=== PATIENT | female | born 1960 | race Caucasian/White ===

== ENCOUNTER 2021-05-27 15:22 | Outpatient (CLI) | payer OTHER, SELFPAY ==
--- NOTE | ~2021-05-27 | MM_ITS ---
EXAMINATION: MM screening [facility] BI w [facility]lan HISTORY: Screening mammogram TECHNIQUE: Craniocaudal and mediolateral oblique 3-D tomosynthesis images were obtained and synthetic 2-D images were generated. CAD analysis was submitted and interpreted. COMPARISON: 07/12/2018, 06/30/2017, 06/26/2016 BREAST PARENCHYMAL COMPOSITION: There are scattered areas of fibroglandular density. FINDINGS: There is no suspicious mass, calcification, or architectural distortion to suggest malignan cy in either breast. There has been no suspicious interval change. IMPRESSION: 1. No mammographic evidence of malignancy. 2. Recommend routine screening mammography in one year. BI-RADS Category 1: Negative Reviewed, dictated and finalized at location A.
== END 2021-05-27 15:23 | disposition home or self-care (01) ==
LOC: ANHIMG 15:23
PROVIDERS: PCP Family Medicine; Visit Provider Family Medicine
DX: Z12.31 Encounter for screening mammogram for malignant neoplasm of breast (principal)
CPT/HCPCS: 77063; 77067

== ENCOUNTER 2021-12-30 14:15 | Outpatient (CLI) | payer OTHER, SELFPAY ==
--- NOTE | ~2021-12-30 | DEXA_ITS ---
Bone Density Report Name: DANYA PEARSON Age: 61 Sex: Female Ethnicity: White Date of : 1960 Indication: postmenopausal; screening for osteoporosis; hysterectomy; rheumatoid arthritis; Referring Provider: ERYN, FIDELINA Study: Bone densitometry was performed. Exam Date: December 30, 2021 Accession number: [id number] Bone Density: Region BMD T-score Z-score Classification AP Spine(L1-L4) 0.936 -1.0 0.4 Normal Femoral Neck (Left) 0.725 -1.1 0.2 Osteopenia Total Hip (Left) 0.968 0.2 1.2 Normal Femoral Neck (Right) 0.800 -0.4 0.8 Normal Total Hip (Right) 0.995 0.4 1.4 Normal Total Hip Mean 0.981 0.3 1.3 Normal World Health Organization criteria for BMD impression classify patients as: Normal (T-score at or above -1.0), Osteopenia (T-score between -1.0 and -2.5), or Osteoporosis (T-score at or below -2.5). 10-year Fracture Risk(1): Major Osteoporotic Fracture 8.7% Hip Fracture 0.6% Reported Risk Factors: [place] (), Neck BMD=0.725, BMI=35.0, rheumatoid arthritis (1) FRAX(R) Version 3.08. Fracture probability calculated for an untreated patient. Fracture probability may be lower if the patient has received treatment. Clinical Information Provided by Patient: Has rheumatoid arthritis Has used the following medications: Vitamin D, Calcium Has the following medical conditions: Hysterectomy Patient maximum height was 64 Menopause Age: 51 No regular weight bearing exercise Drinks caffeinated beverages Onset of menses at age 13 Number of children 3 Impression: The patient has low bone mass, based on the Left Femoral Neck T-score. The patient has an estimated ten-year risk of hip fracture of 0.6% and an estimated ten-year risk of major fracture of 8.7%, based on the WHO FRAX algorithm. Discussion: BONE DENSITY IS LOW AT ONE OR MORE SKELETAL SITES. This patient's lowest T-score is low at one or more skeletal sites. It meets the World Health Organization's (WHO) criteria for ?low bone mass? (T-score between -1.0 and -2.5). The patient's 10-year risk of fracture as calculated by FRAX is less than the threshold where pharmacological therapy is recommended by the National Osteoporosis Foundation (NOF). However, all treatment decisions require clinical judgment and consideration of individual patient factors, including patient preferences, comorbidities, previous drug use, risk factors not captured in the FRAX model (e.g., frailty, falls, vitamin D deficiency, increased bone turnover, interval significant decline in bone density) and possible under or overestimation of fracture risk by FRAX. The patient should follow a healthful lifestyle (good nutrition with adequate calcium and vitamin D, and appropriate weight-bearing exercise). Follow-Up: Consider repeating this stud
== END 2021-12-30 14:16 | disposition home or self-care (01) ==
PROVIDERS: PCP Family Medicine; Visit Provider Registered Nurse
DX: Z78.0 Asymptomatic menopausal state (principal); M85.852 Other specified disorders of bone density and structure, left thigh
CPT/HCPCS: 77080

== ENCOUNTER 2022-01-27 08:11 | Emergency (ER) | payer OTHER, SELFPAY ==
[2022-01-27 08:20] VITALS: BP 135/96; PULSE 97; RESP 16; TEMP 36.8; O2SAT 99
--- NOTE | 2022-01-27 08:32 | ED.URI ---
HPI - URI/Sore Throat General Chief Complaint: Upper Respiratory Infection Stated Complaint: r lymh node swollen/Flu like sx Time Seen by Provider: 01/27/22 08:33 Source: patient and RN notes reviewed Mode of arrival: ambulatory Limitations: no limitations History of Present Illness HPI Narrative: 61-year-old female presented for complaints of right neck pain and swelling to the lymph node, onset this morning. States the swelling is going down. She endorses she has had ?a cold? over the last week with sinus congestion, sore throat and cough. 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 She denies shortness of breath, wheezing, vomiting, diarrhea, fevers or chills. She is taking cccy-cqe-auzwqqu Mucinex for symptoms. MD elicited complaint: cough Related Data Allergies Allergy/AdvReac Type Severity Reaction Status Date / Time pollen extracts Allergy Unknown Unknown Verified 01/27/22 08:32 No Known Allergies Allergy Unverified 01/27/22 08:32 Review of Systems Review of Systems: ROS per HPI PMF Family History Family History Father Carcinoma of colon Colon polyp Family history of malignant neoplasm of urinary bladder Mother Carcinoma of colon Colon polyp Other Family history of malignant neoplasm of breast No family history of cardiovascular disease Social History Social History Alcohol intake: current Exam Narrative: GENERAL: Ill-appearing, nontoxic EYES: PERRLA, conjunctivae clear ENT: Mucous membranes moist. Nasal congestion. TMs pearly st with dull light reflex bilaterally; no tragal tenderness. Oropharynx normal without lesions or exudate, no drooling, no hoarseness, no trismus, uvula midline. NECK: Supple. Right anterior cervical lymphadenopathy CHEST: Clear to auscultation, breath sounds equal. HEART: Regular rate and rhythm. No murmur heard. SKIN: Warm, dry, no rash. NEURO: Alert and oriented x3. PSYCH: Normal mood and affect Course Course Emergency Course: Patient is aware of diagnosis, understands and agrees to treatment plan. Anticipatory guidance given. Patient agrees to follow-up as directed and is aware of reasons to seek care at the emergency department. Portions of this record may have been created with voice recognition software Level of Care: Express Care Visit Vital Signs Vital signs: Vital Signs Temperature 98.2 F 01/27/22 08:20 Pulse Rate 97 01/27/22 08:20 Respiratory Rate 16 01/27/22 08:20 Blood Pressure 135/96 H 01/27/22 08:20 Pulse Oximetry 99 01/27/22 08:20 Oxygen Delivery Room Air 01/27/22 08:20 Temperature 98.2 F 01/27/22 08:20 Pulse Rate 97 01/27/22 08:20 Respiratory Rate 16 01/27/22 08:20 Blood Pressure 135/96 H 01/27/22 08:20 Pulse Oximetry 99 01/27/22 08:20 Oxygen Delivery Room Air 01/27/22 08:20 reviewed MDM - URI/Sore Throat MDM Narrative Medical decision making narrative: Advised supportive measures and signs/symptoms to go to the ER. Pt is appropriate for outpt treatment and f/u. Differential Diagnosis Differential diagnosis: Likely upper respiratory infection, sinusitis and viral infection Discharge Plan Discharge Clinical Impression: Lymphadenopathy of right cervical region Upper respiratory infection Qualifiers: URI type: unspecified URI Qualified Code(s): J06.9 - Acute upper respiratory infection, unspecified Patient Disposition: Home, Self-Care Condition: Stable Instructions: Lymphadenopathy (ED), Upper Respiratory Infection (ED) Additional Instructions: Recommend Flonase spray and Zyrtec (or Claritin/Bina) over the counter Cough syrup may cause drowsiness; avoid driving or take it at night time. Tylenol 1000mg every 8 hours as needed for pain Heating pad on low setting to right neck as needed Symptomatic treatment includes: rest, fluids, and increase
== END 2022-01-27 08:46 | disposition home or self-care (01) ==
PROVIDERS: Emergency Provider Nurse Practitioner Family; PCP Registered Nurse
DX: J06.9 Acute upper respiratory infection, unspecified (principal); R59.0 Localized enlarged lymph nodes
CPT/HCPCS: 99213; G0463

== ENCOUNTER 2023-09-03 07:41 | Outpatient (CLI) | payer OTHER, SELFPAY | END 2023-09-03 07:42 | disposition home or self-care (01) | LOC: ANHAUDASC 07:55 | PROVIDERS: PCP Registered Nurse; Visit Provider Registered Nurse | DX: H90.3 Sensorineural hearing loss, bilateral (principal) | CPT/HCPCS: 92557; 92567 ==

== ENCOUNTER 2023-10-14 13:30 | Outpatient (RCR) | payer OTHER, SELFPAY | END 2023-12-08 23:59 | disposition home or self-care (01) | LOC: ANHAUDASC 13:30 | PROVIDERS: PCP Registered Nurse; Visit Provider Registered Nurse | DX: Z46.1 Encounter for fitting and adjustment of hearing aid (principal) | CPT/HCPCS: 99199; V5261 ==

== ENCOUNTER 2024-04-05 15:29 | Outpatient (CLI) | payer OTHER, SELFPAY ==
--- NOTE | ~2024-04-05 | MM_ITS ---
EXAMINATION: MM screening dru BI w rolan HISTORY: Screening TECHNIQUE: Craniocaudal and mediolateral oblique 3-D tomosynthesis images were obtained and synthetic 2-D images were generated. CAD analysis was submitted and interpreted. COMPARISON: Comparison to multiple prior studies sequentially, with oldest reviewed study dated 08/17. BREAST PARENCHYMAL COMPOSITION: Not dense: There are scattered areas of fibroglandular density. FINDINGS: There is no evidence of suspicious mass, calcification, or architectural distortion to sugg est malignancy in either breast. There has been no suspicious interval change. IMPRESSION: 1. No mammographic evidence of malignancy. 2. Recommend routine screening mammography in one year. BI-RADS Category 1: Negative Reviewed, dictated and finalized at location B. GLE CARRIER
--- OUTSIDE RECORDS SUMMARY | 2024-04-05 16:00 | XMS_ITS | Encounter Summary ---
Author Organization [facility] Address [address] [place] [address] Care Team Providers Care Guest Services Director Name Role Phone Regi Rocha Primary Care Provider [phone] Encounter Details Date Type Department Care Team (Late Contact Info) Description 04/23/2022 [place] Message Enc [facility] Family & Internal Medicine [facility] [address] [place] [address] Regi Rocha APNP [facility] [place] [address] prescription ok? Social History Tobacco Use Types Packs/Day Years Used Date Smoking Tobacco: Never Smokeless Tobacco: Never Alcohol Use Standard Drinks/Week Comments Yes 0 (1 standard drink = 0.6 oz pure alcohol) nightly, 2 glass of wine at night PHQ-2 Answer Date Recorded Patient Health Questionnaire-2 Score 1 03/12/2022 Comments Unknown Sex and Gender Information Value Date Recorded Sex Assigned at Not on file Legal Sex Female 7:29 AM CDT Gender Identity Not on file Sexual Orientation Not on file COVID-19 Exposure Response Date Recorded In the last 10 days, have yo u been in contact with someone who was confirmed or suspected to have Coronavirus/COVID-19? Unable to assess 04/22/2022 8:24 AM BIOMETRICS ANALYST documented as of this encounter Plan of Treatment Upcoming Encounters Date Type Department Care Team (Late Contact Info) Description 01/15/2025 11:20 AM BIOMETRICS ANALYST Office Visit [facility] Multispecialty Care - [address], [address] [place] [address] Nancy Ramirez MD [address] [place] [address] documented as of this encounter Visit Diagnoses Not on filedocumented in this encounter Additional Health Concerns Assessment Noted Time PHQ-9 Depression Total Score: 3 03/12/19 23 10:40 AM BIOMETRICS ANALYST documented as of this encounter Care Teams Guest Services Director Relationship Specialty Start Date End Date Regi Rocha APNP [address] [place] [address] PCP - General NURSE PRACTITIONER 08/07/21 documented as of this encounter
--- OUTSIDE RECORDS SUMMARY | 2024-04-05 16:00 | XMS_ITS | Encounter Summary ---
Author Organization [facility] Address [address] [place] [address] Care Team Providers Care Buffing Wheel Inspector Name Role Phone JosefinaRegi Jyoti HERNANDEZ Primary Care Provider [phone] Encounter Details Date Type Department Care Team (Late st Contact Info) Description 11/19/2023 [employer] Message Enc [facility] - [address], [address] [place] [phone] [facility] Provider MRI Social History Tobacco Use Types Packs/Day Years Used Date Smoking Tobacco: Never Smokeless Tobacco: Never Alcohol Use Standard Drinks/Week Comments Yes 23.3 (1 standard dri nk = 0.6 oz pure alcohol) nightly, 2 glass of wine at night PHQ-2 Answer Date Recorded Patient Health Questionnaire-2 Score 0 08/25/2023 Comments No Sex and Gender Information Value Date Recorded Sex Assigned at Not on file Legal Sex Female 7:29 AM CDT Gender Identity Not on file Sexual Orientation Not on file documented as of this encounter Plan of Treatment Upcoming Encounters Date Type Department Care Team (Late st Contact Info) Description 01/15/2025 11:20 AM GOVERNMENT OPERATIONS CONSULTANT Office Visit [facility] - [address], [address] [place] [phone] Nancy Ramirez MD [address] [place] [phone] documented as of this encounter Visit Diagnoses Not on filedocumented in this encounter Additional Health Concerns Assessment Noted Time PHQ-9 Depression Total Score: 3 03/12/19 23 10:40 AM GOVERNMENT OPERATIONS CONSULTANT documented as of this encounter Care Teams Buffing Wheel Inspector Relationship Specialty Start Date End Date Regi Rocha APNP [address] [place] [address] PCP - General NURSE PRACTITIONER 08/07/21 documented as of this encounter
--- OUTSIDE RECORDS SUMMARY | 2024-04-05 16:00 | XMS_ITS | Encounter Summary ---
Author Organization [facility] Address [address] [place] [address] Care Team Providers Care Orthotic Fitter Name Role Phone Regi Rocha Primary Care Provider [phone] Encounter Details Date Type Department Care Team (Late st Contact Info) Description 01/27/2022 MyChart Message Enc [facility] Family & Internal [facility] [address] [place] [address] Regi Rocha APNP [address] [place], [place] [phone] Swollen gland Social History Tobacco Use Types Packs/Day Years Used Date Smoking Tobacco: Never Smokeless Tobacco: Never Alcohol Use Standard Drinks/Week Comments Yes 0 (1 standard drink = 0.6 oz pure alcohol) nightly, 2 glass of wine at night Comments Unknown Sex and Gender Information Value Date Recorded Sex Assigned at Not on file Legal Sex Female 7:29 AM CDT Gender Identity Not on file Sexual Orientation Not on file documented as of this encounter Plan of Treatment Upcoming Encounters Date Type Department Care Team (Late st Contact Info) Description 01/15/2025 11:20 AM JUDICIAL ADMINISTRATIVE ASSISTANT Office Visit [facility] Multispecialty Care - [facility] [address] [facility], [address] [place] [phone] Nancy Ramirez MD 3 [place] [address] documented as of this encounter Visit Diagnoses Not on filedocumented in this encounter Care Teams Orthotic Fitter Relationship Specialty Start Date End Date Regi Rocha APNP [address] [place] [address] PCP - General NURSE PRACTITIONER 08/07/21 documented as of this encounter
--- OUTSIDE RECORDS SUMMARY | 2024-04-05 16:00 | XMS_ITS | Encounter Summary ---
Author Organization [facility] Address [address] [place] [address] Care Team Providers Care Therapeutic Consultant Name Role Phone Regi Rocha Primary Care Provider [phone] Encounter Details Date Type Department Care Team (Late st Contact Info) Description 09/17/2023 [place] Message Enc [facility] Family & Internal Medicine [facility] [address] [place] [address] Regi Rocha APNP [address] [place] [address] Gastric reflux/headache Social History Tobacco Use Types Packs/Day Years [...] st Contact Info) Description 01/15/2025 11:20 AM RAG BOILER Office Visit [facility] Multispecialty Care - [address], [address] [place] [address] Nancy Ramirez MD [address] [place] [address] documented as of this encounter Visit Diagnoses Not on filedocumented in this encounter Additional Health Concerns Assessment Noted Time PHQ-9 Depression Total Score: 3 03/12/19 23 10:40 AM RAG BOILER documented as of this encounter Care Teams Therapeutic Consultant Relationship Specialty Start Date End Date Regi Rocha APNP [address] [place] [address] PCP - General NURSE PRACTITIONER 08/07/21 documented as of this encounter
--- OUTSIDE RECORDS SUMMARY | 2024-04-05 16:00 | XMS_ITS | Clinical Summary ---
Author Organization [facility] Address [facility] [place] [address] Care Team Providers Care Surgical Appliances Salesperson Name Role Phone Regi Rocha Primary Care Provider [phone] Allergies No known active allergies Medications multi vitamin/minerals (THERA-M ENHANCED) tablet Take 1 tablet by mouth daily. Active Calcium Carb-Cholecalcif polo (CALCIUM 1000 + D OR) 2 Active amoxicillin (AMOXIL) 500 MG capsule Take 4 capsules (2,000 mg total) by mouth once. Takes before dds procedures. 3 Active pantoprazole EC (PROTONIX) 40 MG tabletIndication s:Gastroesophage al reflux disease without esophagitis TAKE 1 TABLET(40 MG) BY MOUTH EVERY MORNING 90 tablet 3 4 Active propranolol (INDERAL) 20 MG tabletIndication s:Intractable episodic headache, unspecified headache type Take 1 tablet (20 mg total) by mouth 2 (two) times daily. 180 tablet 3 4 01/25/20 25 Active Active Problems Problem Noted Date Diagnosed Date Gastroesophageal reflux disease without esophagi tis 08/25/2023 Skin cancer, basal cell 09/29/2021 Joint replaced by other means 08/07/2021 Osteoarthrosis 08/07/2021 Acute retention of urine 08/16/2012 Hematuria 08/16/2012 Encounters Date Type Department Care Team Description 03/24/2024 Telephone [facility] Medical [facility] Family & Internal Medicine [address] [address] Regi Rocha APNP Referral 03/23/2024 Scan [facility] HEALTH INFO SRVCS Scanned, Doc Med Group 01/25/2024 11:20 AM RETAIL INTERIOR DESIGNER Office Visit [facility] Medical Group Multispecialty Care - [address], [address] [place] [phone] Nancy Ramirez MD Follow Up 01/25/2024 Travel from Last 3 Months Immunizations Name Administration Dates Next Due Arexvy Respiratory Syncytial Virus (RSV, adjuvanted) 0.5 mL, PF 02/15/2023 Influenza (Generic) 12/07/2018,02/23/2016 Influenza Adult (Generic) 02/15/2023,11/2021,02/12/2021,2019,12/31/2017 MODERNA COVID-19 (TUBE TRAILER FILLER KAR BRANDY), MRNA, LNP-S, PF, 50 MCG/ 0.25 ML DOSE 02/12/2021 Shingrix 05/10/2023,02/15/2023 Tdap (Adacel) 08/07/2021 Typhoid (Typhim ) 01/20/2019 Family History Medical History Relation Comments Cancer Father bladder cancer Father No Known Problems Maternal Grandfather No Known Problems Maternal Grandmother Anemia Mother Dementia Mother Frontotemporal dementia Mother No Known Problems Paternal Grandfather No Known Problems Paternal Grandmother Hypertension Sister Relation Status Comments Brother Alive Father Maternal Grandfather Maternal Grandmother Mother Paternal Grandfather Paternal Grandmother Sister Alive Son 1 Alive Son 2 Alive Son 3 Alive Social History Tobacco Use Types Packs/Day Years Used Date Smoking Tobacco: Never Smokeless Tobacco: Never Tobacco Cessation:Counseling Given: Yes Alcohol Use Standard Drinks/Week Comments Yes 23.3 (1 standard dri nk = 0.6 oz pure alcohol) nightly, 2 glass of wine at night PHQ-2 Answer Date Recorded Patient Health Questionnaire-2 Score 0 01/25/2024 Comments No Sex and Gender Information Value Date Recorded Sex Assigned at Not on file Legal Sex Female 7:29 AM CDT Gender Identity Not on file Sexual Orientation Not on file Last Filed Vital Signs Vital Sign Reading Time Taken Comments Blood Pressure 130/79 01/25/2024 11:21 AM RETAIL INTERIOR DESIGNER Pulse 72 01/25/2024 11:21 AM RETAIL INTERIOR DESIGNER Temperature 37.2 C (99 F) 01/25/2024 11:21 AM RETAIL INTERIOR DESIGNER Respiratory Rate 16 10/28/2023 11:22 AM CDT Oxygen Saturation 100% 01/25/2024 11:21 AM RETAIL INTERIOR DESIGNER Inhaled Oxygen Concentration - - Weight 92.1 kg (203 lb) 01/25/2024 11:21 AM RETAIL INTERIOR DESIGNER Height 162.6 cm (5' 4 ) 10/28/2023 11:22 AM CDT Body Mass Index 34.84 10/28/2023 11:22 AM CDT Plan of Treatment Upcoming Encounters Date Type Department Care Team (Late st Contact Info) Description 01/15/2025 11:20 AM RETAIL INTERIOR DESIGNER Office Visit [facility] Medical Group Multispecialty Care - [address], [address] [place] [phone] Nancy Ramirez MD [address] [place] [address] Health Maintenance Due Date Last Done Comments Mammogram Screening 05/28/2023 05/27/2021, 07/12/2018, 06/26/2016, Additional history exists COVID-19 Vaccine ( season) 2023 01/08/2022, 02/12/2021, 05/11/2020, Additional history exists Influenza Adult (#1) 2023 02/15/2023, 01/08/2022, 02/12/2021, Additional history exists PHQ-2 (Physician [place]) 03/01/2024 01/25/2024 Annual Physical 08/24/2024 08/25/2023, 08/07/2021 Colorectal Cancer Screening Colonoscopy (10 Years) 08/12/2028 08/12/2018, 03/20/2013 DTaP, Tdap and Td Vaccines (2 - Td or Tdap) 08/08/2031 08/07/2021 Hepatitis C Completed 08/07/2021 RSV Immunization or 60+ Years Completed 02/15/2023 Zoster Vaccines Completed 05/10/2023, 02/15/2023 Meningococcal B Vaccine Aged Out No l onger eligible based on patient's age to complete this topic Meningococcal Vaccine Aged Out No luca david eligible based on patient's age to complete this topic Pneumococcal Vaccine: Pediatrics (0 to 5 Years) and At-Risk Patients (6 to 64 Years) Aged Out No longer eligible based on patient's age to complete this topic RSV Immunizations Under 20 Months Aged Out No longer eligible based on patient's age to complete this topic Procedures Procedure Name Priority Date/Time Associated Diagnosis Comments HEPATITIS C ANTIBODY Routine 08/07/2021 10:59 AM CDT Need for hepatitis C screening test MAMMOGRAM GENERIC (SCAN ORDER) 05/27/2021 COLONOSCOPY GENERIC (SCAN ORDER) 08/12/2018 from Last 3 Months or Most Recently Relevant to Health Maintenance Results * HEPATITIS C ANTIBODY (08/07/2021 10:59 AM CDT) HEPATITIS C AB NON-REACTI VE NON-REACT MAX 08/08/2021 1:40 PM CDT [facility] Comment: ANTIBODIES TO HCV NOT DETECTED. DOES NOT EXCLUDE THE POSSIBILITY OF EXPOSURE TO HCV. 08/07/2021 10:5 9 AM CDT Regi HERNANDEZ LABORATORY Final Resul t [facility] [address] [place] [address], [phone] * MAMMOGRAM GENERIC (05/27/2021) Anatomical Region Laterality Modality Other 05/27/2021 Narrative 05/27/2021 Ordered by an unspecified provider. us Documents Scanned SCANNING Final Result * COLONOSCOPY GENERIC (08/12/2018) 08/12/2018 Narrative 08/12/2018 Ordered by an unspecified provider. us Documents Scanned SCANNING Final Result from Last 3 Months or Most Recently Relevant to Health Maintenance Insurance Care Teams Surgical Appliances Salesperson Relationship Specialty Start Date End Date Regi Rocha APNP [address] [place] [address] PCP - General NURSE PRACTITIONER 08/07/21
--- OUTSIDE RECORDS SUMMARY | 2024-04-05 16:00 | XMS_ITS | Encounter Summary ---
Author Organization [facility] Address [address] [place] [address] Care Team Providers Care Transport Corps Officer Name Role Phone JosefinaRegi garcia Jyoti HERNANDEZ Primary Care Provider [phone] Encounter Details Date Type Department Care Team (Latest Contact Info) Description 03/23/2024 Scan HEALTH INFO SRVCS Scanned, Doc Med Group Social History Tobacco Use Types Packs/Day Years [...] st Contact Info) Description 01/15/2025 11:20 AM NURSE RECRUITER Office Visit [facility] Multispecialty Care - [facility] [address] [facility], [address] [place] [address] Nancy Ramirez MD [address] [place] [address] documented as of this encounter Visit Diagnoses Not on filedocumented in this encounter Additional Health Concerns Assessment Noted Time PHQ-9 Depression Total Score: 3 03/12/19 23 10:40 AM NURSE RECRUITER documented as of this encounter Care Teams Transport Corps Officer Relationship Specialty Start Date End Date Regi Rocha APNP [address] [place] [id number] PCP - General NURSE PRACTITIONER 08/07/21 documented as of this encounter
--- OUTSIDE RECORDS SUMMARY | 2024-04-05 16:00 | XMS_ITS | Encounter Summary ---
Author Organization [facility] Address [address] [place] [address] Care Team Providers Care Project Management It Specialist Name Role Phone Regi Rocha Primary Care Provider [phone] Encounter Details Date Type Department Care Team (Late st Contact Info) Description 08/30/2023 [employer] Message Enc [facility] Family & Internal Medicine [facility] [address] [place] [address] Regi Rocha APNP [address] [place] [address] test result Social History Tobacco Use Types Packs/Day Years [...] on file documented as of this encounter Progress Notes * Norm Seo DO - 08/30/2023 2:14 PM CDT Sample looks contaminated. If pt doesn't have yeast infection symptoms, no need to treat. documented in this encounter Plan of Treatment Upcoming Encounters Date Type Department Care Team (Late st Contact Info) Description 01/15/2025 11:20 AM PLUG SAW OPERATOR Office Visit [facility] Medical Group Multispecialty Care - [facility] [address] [facility], [address] [place] [address] Nancy Ramirez MD [address] [place] [address] documented as of this encounter Visit Diagnoses Not on filedocumented in this encounter Additional Health Concerns Assessment Noted Time PHQ-9 Depression Total Score: 3 03/12/19 23 10:40 AM PLUG SAW OPERATOR documented as of this encounter Care Teams Project Management It Specialist Relationship Specialty Start Date End Date Regi Rocha APNP [address] [place] [address] PCP - General NURSE PRACTITIONER 08/07/21 documented as of this encounter
== END 2024-04-05 15:30 | disposition home or self-care (01) ==
PROVIDERS: PCP Registered Nurse; Visit Provider Registered Nurse
DX: Z12.31 Encounter for screening mammogram for malignant neoplasm of breast (principal)
CPT/HCPCS: 77063; 77067

== ENCOUNTER 2024-07-13 02:51 | Day surgery (SDC) | payer OTHER, SELFPAY ==
[2024-07-06 11:34] VITALS: BMI 34.8
--- OUTSIDE RECORDS SUMMARY | 2024-07-13 02:53 | XMS_ITS | Encounter Summary ---
Author Organization [facility] Address [address] [place] [address] Care Team Providers Care Licensing Worker Name Role Phone Regi Rocha Primary Care Provider +1 [phone] Encounter Details Date Type Department Care Team (Late Contact Info) Description 04/23/2022 phorust Message Enc [facility] Family & Internal Medicine [facility] [address] [place] [address] Regi Rocha APNP [facility] [place] [address] prescription ok? Social History Tobacco [...] Coronavirus/COVID-19? Unable to assess 04/22/2022 8:24 AM SENIOR WEB ARCHITECT documented as of this encounter Plan of Treatment Upcoming Encounters Date Type Department Care Team (Late Contact Info) Description 01/15/2025 11:20 AM SENIOR WEB ARCHITECT Office Visit [facility] Multispecialty Care - [address], [address] [place] [address] Nancy Ramirez MD 3 [place] [address] documented as of this encounter Visit Diagnoses Not on filedocumented in this encounter Additional Health Concerns Assessment Noted Time PHQ-9 Depression Total Score: 3 03/12/19 23 10:40 AM SENIOR WEB ARCHITECT documented as of this encounter Care Teams Licensing Worker Relationship Specialty Start Date End Date Regi Rocha APNP [address] [place] [address] PCP - General NURSE PRACTITIONER 08/07/21 documented as of this encounter
--- OUTSIDE RECORDS SUMMARY | 2024-07-13 02:53 | XMS_ITS | Encounter Summary ---
Author Organization [facility] Address [address] [place] [address] Care Team Providers Care Hi Ranger Operator Name Role Phone JosefinaRegi Jyoti HERNANDEZ Primary Care Provider +[phone] Encounter Details Date Type Department Care Team (Late st Contact Info) Description 11/19/2023 [employer] Message Enc [facility] - [address], [address] [place] [phone] [facility] Provider MRI Social History Tobacco Use Types [...] st Contact Info) Description 01/15/2025 11:20 AM PET STORE MERCHANDISER Office Visit [facility] - [address], [address] [place] [phone] Nancy Ramirez MD [address] [place] [phone] documented as of this encounter Visit Diagnoses Not on filedocumented in this encounter Additional Health Concerns Assessment Noted Time PHQ-9 Depression Total Score: 3 03/12/19 23 10:40 AM PET STORE MERCHANDISER documented as of this encounter Care Teams Hi Ranger Operator Relationship Specialty Start Date End Date Regi Rocha APNP [address] [place] [address] PCP - General NURSE PRACTITIONER 08/07/21 documented as of this encounter
--- OUTSIDE RECORDS SUMMARY | 2024-07-13 02:53 | XMS_ITS | Encounter Summary ---
Author Organization [facility] Address [address] [place] [address] Care Team Providers Care Wildlife Conservation Professor Name Role Phone Regi Rocha Primary Care Provider +1 [phone] Encounter Details Date Type Department Care Team (Late st Contact Info) Description 08/30/2023 [employer] Message Enc [facility] Medical Group Family & Internal Medicine [facility] [address] [place] [address] Regi Rocha APNP [address] [place] [address] test result Social History Tobacco [...] st Contact Info) Description 01/15/2025 11:20 AM AUTOMOBILE TRAVEL CLUB COUNSELOR Office Visit [facility] Medical Group Multispecialty Care - [facility] [address] [facility], [address] [place] [address] Nancy Ramirez MD 3 [place] [address] documented as of this encounter Visit Diagnoses Not on filedocumented in this encounter Additional Health Concerns Assessment Noted Time PHQ-9 Depression Total Score: 3 03/12/19 23 10:40 AM AUTOMOBILE TRAVEL CLUB COUNSELOR documented as of this encounter Care Teams Wildlife Conservation Professor Relationship Specialty Start Date End Date Regi Rocha APNP [address] [place] [address] PCP - General NURSE PRACTITIONER 08/07/21 documented as of this encounter
--- OUTSIDE RECORDS SUMMARY | 2024-07-13 02:53 | XMS_ITS | Encounter Summary ---
Author Organization [facility] Address [address] [place] [address] Care Team Providers Care Buggy Runner Name Role Phone Regi Rocha Primary Care Provider +1 [phone] Encounter Details Date Type Department Care Team (Late st Contact Info) Description 09/17/2023 [employer] Message Enc [facility] Family & Internal Medicine [facility] [address] [place] [address] Regi Rocha APNP [address] [place] [address] Gastric reflux/headache Social History Tobacco [...] st Contact Info) Description 01/15/2025 11:20 AM RECONSTRUCTIVE DENTIST Office Visit [facility] Multispecialty Care - [address], [address] [place] [address] Nancy Ramirez MD [address] [place] [address] documented as of this encounter Visit Diagnoses Not on filedocumented in this encounter Additional Health Concerns Assessment Noted Time PHQ-9 Depression Total Score: 3 03/12/19 23 10:40 AM RECONSTRUCTIVE DENTIST documented as of this encounter Care Teams Buggy Runner Relationship Specialty Start Date End Date Regi Rocha APNP [address] [place] [address] PCP - General NURSE PRACTITIONER 08/07/21 documented as of this encounter
--- OUTSIDE RECORDS SUMMARY | 2024-07-13 02:53 | XMS_ITS | Encounter Summary ---
Author Organization [facility] Address [address] [place] [address] Care Team Providers Care Electrician Telephone Name Role Phone Regi Rocha Primary Care Provider +1 [phone] Encounter Details Date Type Department Care Team (Late st Contact Info) Description 01/27/2022 MyChart Message Enc [facility] Family & Internal Medicine [facility] [address] [place] [address] Regi Rocha APNP [address] [place], [place] [phone] Swollen gland Social History Tobacco Use Types [...] st Contact Info) Description 01/15/2025 11:20 AM SKETCH ARTIST Office Visit [facility] Multispecialty Care - [facility] 3 [facility], [address] [place] [address] Nancy Ramirez MD 3 [place] [address] documented as of this encounter Visit Diagnoses Not on filedocumented in this encounter Care Teams Electrician Telephone Relationship Specialty Start Date End Date Regi Rocha APNP [address] [place] [address] PCP - General NURSE PRACTITIONER 08/07/21 documented as of this encounter
--- OUTSIDE RECORDS SUMMARY | 2024-07-13 02:53 | XMS_ITS | Clinical Summary ---
Author Organization [facility] Address [facility] [place] [address] Care Team Providers Care Senior Product Designer Name Role Phone Regi Rocha Primary Care Provider [phone] Allergies No known active allergies Medications multi [...] Encounters Date Type Department Care Team Description 04/17/2024 Telephone [facility] Medical Group Family & Internal Medicine [address] [address] Regi Rocha APNP Radiology Results (Mammogram 04/05/24 [facility]) from Last 3 Months Immunizations Immunization Administration Dates Next Due Arexvy Respiratory Syncytial Virus (RSV, adjuvanted) 0.5 mL, PF 02/15/2023 Influenza (Generic) 12/07/2018,02/23/2016 Influenza Adult (Generic) 02/15/2023,11/2021,02/12/2021,2019,12/31/2017 MODERNA COVID-19 (EXCELSIOR PICKER KAR BRANDY), MRNA, LNP-S, PF, 50 MCG/ [...] Comments Blood Pressure 130/79 01/25/2024 11:21 AM CARBON PAPER COATING SUPERVISOR Pulse 72 01/25/2024 11:21 AM CARBON PAPER COATING SUPERVISOR Temperature 37.2 C (99 F) 01/25/2024 11:21 AM CARBON PAPER COATING SUPERVISOR Respiratory Rate 16 10/28/2023 11:22 AM CDT Oxygen Saturation 100% 01/25/2024 11:21 AM CARBON PAPER COATING SUPERVISOR Inhaled Oxygen Concentration - - Weight 92.1 kg (203 lb) 01/25/2024 11:21 AM CARBON PAPER COATING SUPERVISOR Height 162.6 cm (5' 4 ) 10/28/2023 11:22 AM CDT Body Mass Index 34.84 10/28/2023 11:22 AM CDT Plan of Treatment Upcoming Encounters Date Type Department Care Team (Late st Contact Info) Description 01/15/2025 11:20 AM CARBON PAPER COATING SUPERVISOR Office Visit [facility] Medical Group Multispecialty Care - [facility] 3 [facility], [address] [place] [address] Nancy Ramirez MD 3 [place] [address] Health Maintenance Due Date Last Done Comments Pneumococcal Vaccine: 50+ Years (1 of 1 - PCV) 10/30/2011 COVID-19 Vaccine ( season) 2023 01/08/2022, 02/12/2021, 05/11/2020, Additional history exists PHQ-2 (Physician [place]) 03/01/2024 01/25/2024 Annual Physical 08/24/2024 08/25/2023, 08/07/2021 Mammogram Screening 04/05/2026 04/05/2024, 05/27/2021, 07/12/2018, Additional history exists Colorectal Cancer Screening Colonoscopy (10 Years) 08/12/2028 [...] Procedure Name Priority Date/Time Associated Diagnosis Comments MAMMOGRAM GENERIC (SCAN ORDER) 04/05/2024 HEPATITIS C ANTIBODY Routine 08/07/2021 10:59 AM CDT Need for hepatitis C screening test COLONOSCOPY GENERIC (SCAN ORDER) 08/12/2018 from Last 3 Months or Most Recently Relevant to Health Maintenance Results * MAMMOGRAM GENERIC (SCAN ORDER) (04/05/2024) Anatomical Region Laterality Modality Other 04/05/2024 [facility] Scanned SCANNING Final Resu lt * HEPATITIS C ANTIBODY (08/07/2021 10:59 AM CDT) HEPATITIS C AB NON-REACTI VE NON-REACT MAX 08/08/2021 1:[address] [facility] Comment: ANTIBODIES TO HCV NOT DETECTED. DOES NOT EXCLUDE THE POSSIBILITY OF EXPOSURE TO HCV. 08/07/2021 10:5 9 AM CDT Regi [facility] Final Resul t [facility] [address] [place] [address], [id number] * COLONOSCOPY GENERIC (08/12/2018) 08/12/2018 Narrative 08/12/2018 Ordered by an unspecified provider. us Documents Scanned SCANNING Final Result from Last 3 Months or Most Recently Relevant to Health Maintenance [place] [address] [place] [address] Care Teams Senior Product Designer Relationship Specialty Start Date End Date Regi Rocha APNP [facility] [place] [address] PCP - General NURSE PRACTITIONER 08/07/21
[2024-07-13 08:02] VITALS: BP 135/92; PULSE 66; RESP 20; TEMP 35.8; O2SAT 99; BMI 35.2
[2024-07-13] MEDS: LACTATED RINGERS 1,000 ML 150 ML IV CONT (08:16)
--- NOTE | 2024-07-13 08:34 | P.PNAN_ITS ---
Anes - Eval Final PreProcedure Day of Procedure 07/13/24 08:34 Patient weight: obese Heart: regular rate and rhythm Lungs: clear to auscultation Airway: Mallampati scale class II Neurological: alert and oriented Last oral intake: >/= 8 hours ASA classification: III Emergent: no Anesthetic plan: proceed Anesthesia type and monitoring: general GIVS and standard monitoring Results Review: All pre-operative results and documents have been reviewed as part of the pre- operative evaluation. Informed Consent: The patient's anesthetic plan and its attendant risks and benefits were discussed with the patient/family/POA. Questions were solicited and answers provided to the satisfaction of the patient/family/POA.
--- NOTE | 2024-07-13 09:02 | PM.IMHP ---
H&P: HPI History of Present Illness Date/Time: 07/13/24 09:02 Chief Complaint: Family history of colorectal cancer Narrative: This patient has family history of colorectal cancer. her mother had colon cancer when she was in her 50s. Review of Systems Review of Systems: All systems reviewed & are unremarkable except as noted in HPI and below PMFSH Family History Family History Father Carcinoma of colon Colon polyp Family history of malignant neoplasm of urinary bladder Mother Carcinoma of colon Colon polyp Other Family history of malignant neoplasm of breast No family history of cardiovascular disease Social History Social History Smoking status: Never smoker Alcohol intake: current Drinks per week: 7 Alcohol use details: wine Living arrangements: with family Spiritual care concerns: No Meds Home Medications and Allergies Home Medications Medication Instructions Recorded Confirmed Type omeprazole 20 mg capsule,delayed 20 mg PO DAILY 3 months #90 caps 03/23/24 07/13/24 Rx release propranolol 10 mg tablet 10 mg PO Q12H 03/23/24 07/13/24 History calcium 600 mg (as 1 cap PO DAILY 07/06/24 07/13/24 History carbonate)-vitamin D3 5 mcg (200 unit) capsule (Calcium 600 + D(3)) ddxsyvjidqtz-otkjvayl-dwscey 1 tablet PO DAILY 07/06/24 07/13/24 History tablet (Multivitamin 50 Plus tablet) Allergies Allergy/AdvReac Type Severity Reaction Status Date / Time pollen extracts Allergy Unknown Unknown Verified 07/13/24 08:01 No Known Allergies Allergy Verified 07/13/24 08:01 Vital Signs Vital Signs - 24 hr 07/13/24 08:02 Temperature 96.5 F L Pulse Rate 66 Respiratory Rate 20 Blood Pressure 135/92 H Pulse Oximetry 99 Oxygen Delivery Room Air Exam Const: General: cooperative and healthy appearing Resp: Effort & Inspection: normal respiratory effort and able to speak in complete sentences Auscultation: clear to auscultation bilaterally Cardio: Rate: regular rate Rhythm: regular rhythm GI: Inspection: normal to inspection GI Palp: No No hepatosplenomegaly present Auscultation: normal bowel sounds Rectal Exam: deferred Skin: General skin exam: normal color Psych: Appearance: grossly normal Mental Status: mental status grossly normal Assessment and Plan Assessment and plan (1) Family history of colorectal cancer: Code(s): Z80.0 - Family history of malignant neoplasm of digestive organs Status: Acute Assessment and Plan: The patient is deemed a good candidate for the procedure. Consent signed. Will proceed.
[2024-07-13] MEDS: SIMETHICONE ORAL SUSPENSION 20 MG/0.3 ML 30 ML BOTTLE 0.6 ML IRRIGATION (09:17)
[2024-07-13 09:29] VITALS: BP 114/76; PULSE 67; RESP 20; O2SAT 95
[2024-07-13 09:39] VITALS: BP 123/71; PULSE 71; RESP 20; O2SAT 97
[2024-07-13 09:49] VITALS: BP 132/84; PULSE 70; RESP 20; O2SAT 97
== END 2024-07-13 10:06 | disposition home or self-care (01) ==
PROVIDERS: PCP Registered Nurse; Referring Provider Nurse Practitioner Family; Visit Provider Internal Medicine Gastroenterology
PROC: 0DJD8ZZ Inspection of Lower Intestinal Tract, Via Natural or Artificial Opening Endoscopic (ICD-10-PCS; CPT 45378; principal; 2024-07-13 09:00)
DX: Z12.11 Encounter for screening for malignant neoplasm of colon (principal); D12.2 Benign neoplasm of ascending colon; D12.3 Benign neoplasm of transverse colon; K63.5 Polyp of colon; K57.30 Diverticulosis of large intestine without perforation or abscess without bleeding; K64.8 Other hemorrhoids; Z80.0 Family history of malignant neoplasm of digestive organs; E66.9 Obesity, unspecified; Z68.35 Body mass index [BMI] 35.0-35.9, adult
CPT/HCPCS: 45385; 88305; J2003; J2704; J7120

== ENCOUNTER 2024-12-06 08:53 | Outpatient (CLI) | payer OTHER, SELFPAY ==
--- NOTE | ~2024-12-06 | XR_ITS ---
EXAMINATION: XR knee RT 3V, 12/06/2024 8:58 CDT HISTORY: Presence of unspecified artificial knee joint; 5 YR CHECK COMPARISON: No comparisons available. Findings: No acute fracture or malalignment. Right prosthesis intact. Soft tissues unremarkable. Impression: No acute fracture or malalignment. Reviewed, dictated and finalized at location P. Impression: No acute fracture or malalignment.
== END 2024-12-06 08:54 | disposition home or self-care (01) ==
LOC: MICIMG 08:54
PROVIDERS: PCP Registered Nurse; Visit Provider Orthopaedic Surgery
DX: Z96.659 Presence of unspecified artificial knee joint (principal)
CPT/HCPCS: 73562

== ENCOUNTER 2025-02-28 07:57 | Outpatient (CLI) | payer OTHER, SELFPAY ==
--- OUTSIDE RECORDS SUMMARY | 2025-02-28 08:01 | XMS_ITS | Encounter Summary ---
Author Organization [facility] Address [address] [place] [address] Care Team Providers Care Manager Multicultural Name Role Phone Regi Rocha Primary Care Provider [phone]- [phone] Encounter Details Date Type Department Care Team (Late st Contact Info) Description 11/19/2023 [employer] Message Enc [facility] Medical Group Multispecialty Care - [address], [address] [place] [address] [facility] Provider MRI Social History Tobacco Use [...] as of this encounter Plan of Treatment Not on file documented as of this encounter Visit Diagnoses Not on filedocumented in this encounter Additional Health Concerns Assessment Noted Time PHQ-9 Depression Total Score: 3 03/12/19 23 10:40 AM TAIL DOGGER documented as of this encounter Care Teams Manager Multicultural Relationship Specialty Start Date End Date Regi Rocha APNP [address] [place] [address] PCP - General NURSE PRACTITIONER 08/07/21 documented as of this encounter
--- OUTSIDE RECORDS SUMMARY | 2025-02-28 08:01 | XMS_ITS | Encounter Summary ---
Author Organization [facility] Address [address] [place] [address] Care Team Providers Care Cigar Head Stringer Name Role Phone Regi Rocha Primary Care Provider [phone] [phone] Encounter Details Date Type Department Care Team (Late st Contact Info) Description 09/17/2023 [employer] Message Enc [facility] Medical Group Family & Internal Medicine [facility] [address] [place] [address] Regi Rocha APNP [address] [place] [address] Gastric reflux/headache Social History Tobacco Use Types [...] Total Score: 3 03/12/19 23 10:40 AM SECRETARY documented as of this encounter Care Teams Cigar Head Stringer Relationship Specialty Start Date End Date Regi Rocha APNP [address] [place], [place] [phone] PCP - General NURSE PRACTITIONER 08/07/21 documented as of this encounter
--- OUTSIDE RECORDS SUMMARY | 2025-02-28 08:01 | XMS_ITS | Encounter Summary ---
Author Organization [facility] Address [address] [place] [address] Care Team Providers Care Head Doffer Name Role Phone Regi Rocha Primary Care Provider [phone] Encounter Details Date Type Department Care Team (Late st Contact Info) Description 01/27/2022 [employer] Message Enc [facility] Medical Group Family & Internal Medicine [facility] [address] [place] [address] Regi Rocha APNP [address] [place] [address] Swollen gland Social History Tobacco Use Types [...] on filedocumented in this encounter Care Teams Head Doffer Relationship Specialty Start Date End Date Regi Rocha APNP [address] [place] [address] [phone] PCP - General NURSE PRACTITIONER 08/07/21 documented as of this encounter
--- OUTSIDE RECORDS SUMMARY | 2025-02-28 08:01 | XMS_ITS | Encounter Summary ---
Author Organization [facility] Address [address] [place] [address] Care Team Providers Care Garment Sorter Name Role Phone Regi Rocha Primary Care Provider [phone] Reason for Referral * Audiology Exam (Routine) - Authorized Specialty Diagnoses / Procedures Referred By Maddie galloway Referred To Contact AUDIOLOGY Diagnoses Bilateral hearing loss, unspecified hearing loss type Procedures OFFICE/OUTPATIENT NEW LOW MDM 30-44 MINUTES OFFICE/OUTPATIENT NEW MODERATE MDM 45 MINUTES OFFICE/OUTPATIENT NEW HIGH MDM 60 MINUTES OFFICE/OUTPATIENT ESTABLISHED LOW MDM 20 MIN OFFICE/OUTPT VISIT,EST,LEVL IV OFFICE/OUTPATIENT ESTABLISHED HIGH MDM 40 MIN Regi Rocha APNP [address] [place] [address] Phone: tel: fax: [address] [address] Phone: tel: fax: Referral ID Status Reason Start Date Expiration Date Visits Requested Visits Authorized [id number] Authorized Specialty Services 05/14/2025 4 4 Scheduling Instructions Patient has an appointment scheduled 02/14/[address] Zepeda at 1:00. Needing referral. RN Reason for Visit * Reason Onset Date Comments Referral Request 02/13/2025 Encounter Details Date Type Department Care Team (Late st Contact Info) Description 02/13/2025 Telephone [facility] Medical Group Family & Internal Medicine [address] [place] [address] Regi Rocha APNP [address] [place] [address] Referral Request Social History Tobacco Use Types Packs/Day Years Used Date Smoking Tobacco: Never Passive Smoke Exposure: Never Smokeless Tobacco: Never Alcohol Use Standard Drinks/Week Comments Yes 23.3 (1 standard dri nk = 0.6 oz pure alcohol) nightly, 2 glass of wine at night PHQ-2 Answer Date Recorded Patient Health Questionnaire-2 Score 0 01/15/2025 Comments No Sex and Gender Information Value Date Recorded Sex Assigned at Not on file Legal Sex Female 7:29 AM CDT Gender Identity Not on file Sexual Orientation Not on file documented as of this encounter Progress Notes * Alexus Muñoz MA - 02/13/2025 3:48 PM CST Hearing test scheduled with Dr. Zepeda at [facility] tomorrow at 1:00. Audiology office called requesting referral. Fax to [phone]. RN documented in this encounter Plan of Treatment Scheduled Referrals Name Type Priority Associated Diagnoses Orde r Schedule Ambulatory referral to Audiology Referral Routine Bilateral hearing loss, unspecified hearing loss type Ordered: 02/13/2025 documented as of this encounter Visit Diagnoses Diagnosis Bilateral hearing loss, unspecified hearing loss type- Primary documented in this encounter Additional Health Concerns Assessment Noted Time PHQ-9 Depression Total Score: 3 03/12/19 23 10:40 AM TELE RN documented as of this encounter Care Teams Garment Sorter Relationship Specialty Start Date End Date Regi Rocha APNP [address] [place] [address] PCP - General NURSE PRACTITIONER 08/07/21 documented as of this encounter
--- OUTSIDE RECORDS SUMMARY | 2025-02-28 08:01 | XMS_ITS | Encounter Summary ---
Author Organization [facility] Address [address] [place] [address] Care Team Providers Care Insurance Advisor Name Role Phone Regi Rocha Primary Care Provider [phone] [phone] Encounter Details Date Type Department Care Team (Late st Contact Info) Description 04/23/2022 [employer] Message Enc [facility] Medical Group Family & Internal Medicine [facility] [address] [place] [address] Regi Rocha APNP [facility] [place] [address] prescription ok? Social History Tobacco [...] Coronavirus/COVID-19? Unable to assess 04/22/2022 8:24 AM FORMULATION TECHNICIAN documented as of this encounter Plan of Treatment Not on file documented as of this encounter Visit Diagnoses Not on filedocumented in this encounter Additional Health Concerns Assessment Noted Time PHQ-9 Depression Total Score: 3 03/12/19 23 10:40 AM FORMULATION TECHNICIAN documented as of this encounter Care Teams Insurance Advisor Relationship Specialty Start Date End Date Regi Rocha APNP [address] [place] [address] PCP - General NURSE PRACTITIONER 08/07/21 documented as of this encounter
--- OUTSIDE RECORDS SUMMARY | 2025-02-28 08:01 | XMS_ITS | Encounter Summary ---
Author Organization [facility] Address [address] [place] [address] Care Team Providers Care Wellness Consultant Name Role Phone Regi Rocha Primary Care Provider [phone] Encounter Details Date Type Department Care Team (Late st Contact Info) Description 08/30/2023 3LMt Message Enc [facility] Medical Group Family & Internal Medicine [facility] [address] [place] [address] Regi Rocha APNP [address] [place] [address] test result Social History Tobacco [...] documented in this encounter Plan of Treatment Not on file documented as of this encounter Visit Diagnoses Not on filedocumented in this encounter Additional Health Concerns Assessment Noted Time PHQ-9 Depression Total Score: 3 03/12/19 23 10:40 AM GROUP CONTROLLER documented as of this encounter Care Teams Wellness Consultant Relationship Specialty Start Date End Date Regi Rocha APNP [address] [place] [address] PCP - General NURSE PRACTITIONER 08/07/21 documented as of this encounter
--- OUTSIDE RECORDS SUMMARY | 2025-02-28 08:01 | XMS_ITS | Clinical Summary ---
Author Organization [facility] Address [address] [place] [id number] Care Team Providers Care Drawer In Dobby Loom Name Role Phone Regi Rocha Primary Care Provider [phone] Allergies No known active allergies Medications multi vitamin/minerals (THERA-M ENHANCED) tablet Take 1 tablet by mouth daily. Active Calcium Carb-Cholecalcif polo (CALCIUM 1000 + D OR) 09/29/2021 Active pantoprazole EC (PROTONIX) 40 MG tabletIndication s:Gastroesophage al reflux disease without esophagitis TAKE 1 TABLET(40 MG) BY MOUTH EVERY MORNING 90 tablet 3 11/23/2023 Active omeprazole (PRILOSEC) 20 MG capsule Take 1 capsule (20 mg total) by mouth daily. 06/22/2024 Active propranolol (INDERAL) 20 MG tabletIndication s:Intractable episodic headache, unspecified headache type TAKE 1 TABLET(20 MG) BY MOUTH TWICE DAILY 60 tablet 11 01/29/2025 Active Active Problems Problem Noted Date Diagnosed Date Gastroesophageal reflux disease without esophagi tis 08/25/2023 Skin cancer, basal cell 09/29/2021 Joint replaced by other means 08/07/2021 Osteoarthrosis 08/07/2021 Acute retention of urine 08/16/2012 Hematuria 08/16/2012 Encounters Date Type Department Care Team Description 02/13/2025 Telephone [facility] Family & Internal Medicine [address] [phone] Regi Rocha APNP Referral Request 01/15/2025 11:20 AM OBSTETRICIAN AND GYNAECOLOGIST Office Visit [facility] [address] [place] [address] Nancy Ramirez MD Follow Up 01/15/2025 Telephone [facility] Family & Internal Medicine [address] [phone] Regi Rocha APNP Referral 01/15/2025 Travel 12/08/2024 Scan [facility] Scanned, [facility] 12/06/2024 Scan [facility] Scanned, [facility] Image (SCAN) from Last 3 Months Immunizations Immunization Administration Dates Next Due Arexvy Respiratory Syncytial Virus (RSV, adjuvanted) 0.5 mL, PF 02/15/2023 Hepatitis A (Havrix [address]) 11/20/2002,2002 Influenza (Generic) 01/04/2024,,12/07/2018,2016,02/23/2016,12/21/2014,01/26/2014,1 ,11/06/2011,12/11/2010, 008 Influenza Adult (Generic) 02/15/2023,11/2021,02/12/2021,2019,12/31/2017 MODERNA COVID-19 (12+) MRNA, LNP-S, PF, 100 MCG/ 0.5 ML DOSE 05/11/2020,04/13/2020 MODERNA COVID-19 (HOT CAR CHARGER KAR BRANDY), MRNA, LNP-S, PF, 50 MCG/ 0.25 ML DOSE 02/12/2021 MODERNA COVID-19, 6-11 Prima ry (DARK BLUE CAP) (previous 18+ monovalent booster), mRNA, LNP-S,PF, 50 mcg/ 0.50mL dose 05/11/2020,04/13/2020 Shingrix 05/10/2023,02/15/2023 Td (Generic) 02/01/2009,09/05/1998 Tdap (Adacel) 08/07/2021,11/06/2011 Typhoid (Typhim ) 01/20/2019 Family History Medical History Relation Comments Cancer Father bladder cancer Father No Known Problems Maternal Grandfather No Known Problems Maternal Grandmother Anemia Mother Dementia Mother Frontotemporal dementia Mother Stroke Mother No Known Problems Paternal Grandfather No Known Problems Paternal Grandmother Hypertension Sister Relation Status Comments Brother Alive Father Maternal Grandfather Maternal Grandmother Mother Paternal Grandfather Paternal Grandmother Sister Alive Son 1 Alive Son 2 Alive Son 3 Alive Social History Tobacco Use Types Packs/Day Years Used Date Smoking Tobacco: Never Passive Smoke Exposure: Never Smokeless Tobacco: Never Tobacco Cessation:Counseling Given: Not Answered Alcohol Use Standard Drinks/Week Comments Yes 23.3 [...] Sign Reading Time Taken Comments Blood Pressure 137/94 01/15/2025 11:53 AM OBSTETRICIAN AND GYNAECOLOGIST Pulse 78 01/15/2025 11:38 AM OBSTETRICIAN AND GYNAECOLOGIST Temperature 36.7 C (98.1 F) 01/15/2025 11:38 AM OBSTETRICIAN AND GYNAECOLOGIST Respiratory Rate 16 10/28/2023 11:22 AM CDT Oxygen Saturation 99% 01/15/2025 11:38 AM OBSTETRICIAN AND GYNAECOLOGIST Inhaled Oxygen Concentration - - Weight 96.6 kg (213 lb) 01/15/2025 11:38 AM OBSTETRICIAN AND GYNAECOLOGIST Height 162.6 cm (5' 4) 01/15/2025 11:38 AM OBSTETRICIAN AND GYNAECOLOGIST Body Mass Index 36.56 01/15/2025 11:38 AM OBSTETRICIAN AND GYNAECOLOGIST Plan of Treatment Health Maintenance Due Date Last Done Comments Pneumococcal Vaccine: 50+ Years (1 of 1 - PCV) 10/30/2011 Annual Physical 08/24/2024 08/25/2023, 08/07/2021 COVID-19 Vaccine ( season) 2024 01/08/2022, 02/12/2021, 05/11/2020, Additional history exists Influenza Adult (#1) 2024 01/04/2024, 02/15/2023, 01/08/2022, Additional history exists Mammogram Screening 04/05/2026 04/05/2024, 05/27/2021, 07/12/2018, Additional history exists DTaP, Tdap and Td Vaccines (3 - Td or Tdap) 08/08/2031 08/07/2021, 11/06/2011, 02/01/2009, Additional history exists Colorectal Cancer Screening Colonoscopy (10 Years) 07/13/2034 07/13/2024, 08/12/2018, 03/20/2013 Hepatitis A Vaccines Aged Out 11/20/2002, 07/19/19 03 No longer eligible based on patient's age to complete this topic Hepatitis C Completed 08/07/2021 RSV Immunization or 60+ Years Completed 02/15/2023 Zoster Vaccines Completed 05/10/2023, 02/15/2023 PHQ-2 (Physician [place]) Completed 01/15/2025 Meningococcal B Vaccine Aged Out No l onger eligible based on patient's age to complete this topic Meningococcal Vaccine Aged Out No luca david eligible based on patient's age to complete this topic RSV Immunizations Under 20 Months Aged Out No longer eligible based on patient's age to complete this topic Procedures Procedure Name Priority Date/Time Associated Diagnosis Comments IMAGE GENERIC 12/06/2024 COLONOSCOPY GENERIC (SCAN ORDER) 07/13/2024 MAMMOGRAM GENERIC (SCAN ORDER) 04/05/2024 HEPATITIS C ANTIBODY Routine 08/07/2021 10:59 AM CDT Need for hepatitis C screening test from Last 3 Months or Most Recently Relevant to Health Maintenance Results * IMAGE GENERIC (12/06/2024) Anatomical Region Laterality Modality Other 12/06/2024 [facility] Scanned SCANNING Final Resu lt * COLONOSCOPY GENERIC (SCAN ORDER) (07/13/2024) 07/13/2024 [facility] Scanned SCANNING Final Resu lt * MAMMOGRAM GENERIC (SCAN ORDER) (04/05/2024) Anatomical Region Laterality Modality Other 04/05/2024 [facility] Scanned SCANNING Final Resu lt * HEPATITIS C ANTIBODY (08/07/2021 10:59 AM CDT) HEPATITIS C AB NON-REACTI VE NON-REACT MAX 08/08/2021 1:[address] [facility] Comment: ANTIBODIES TO HCV NOT DETECTED. DOES NOT EXCLUDE THE POSSIBILITY OF EXPOSURE TO HCV. 08/07/2021 10:5 9 AM CDT [facility] Final Resul t [facility] [address] [place] [address], [id number] from Last 3 Months or Most Recently Relevant to Health Maintenance Insurance Care Teams Drawer In Dobby Loom Relationship Specialty Start Date End Date Regi Rocha APNP [address] [place] [address] PCP - General NURSE PRACTITIONER 08/07/21
== END 2025-02-28 07:58 | disposition home or self-care (01) ==
LOC: ANHAUDASC 07:58
PROVIDERS: PCP Registered Nurse; Visit Provider Registered Nurse
DX: H90.3 Sensorineural hearing loss, bilateral (principal)
CPT/HCPCS: 92557